=== PATIENT | male | born 1965 | race Caucasian/White ===

== ENCOUNTER 2018-02-07 18:50 | Emergency (ER) | payer BC ==
[~2018-02-07] VITALS: Ht 167.6 cm; Wt 93.0 kg
[2018-02-07] MEDS ORDERED: DICLOFENAC SODI75 MG PO (19:00)
[2018-02-07] MEDS ORDERED: FOLGARD TABLET1 EAC1 PO (19:01)
[2018-02-07] MEDS ORDERED: IBUPROFEN600 MG PO (20:08)
== END 2018-02-07 21:05 | disposition home or self-care (01) ==
LOC: ED 18:50
DX: S93.602A Unspecified sprain of left foot, initial encounter (principal); I10 Essential (primary) hypertension; E11.9 Type 2 diabetes mellitus without complications; Z79.899 Other long term (current) drug therapy; X50.9XXA Other and unspecified overexertion or strenuous movements or postures, initial encounter; Y93.01 Activity, walking, marching and hiking
CPT/HCPCS: 73630; 99283

== ENCOUNTER 2018-04-17 05:55 | Inpatient (IN) | payer OTHER, BC ==
--- NOTE | 2018-04-10 17:07 | NUR ---
PATIENT HERE TODAY FOR PREADMISSION APPOINTMENT. HE IS SCHEDULED FOR A LEFT TOTAL KNEE REPLACMENT ON 04/17/18. HE HAS ATTENDED A [facility]INT [facility] ALREADY WITH PHYSICAL THERAPY AND APPOINTMENTS HAVE BEEN SET UP FOR POST OP. HE HAS ONE STEP INTO HIS HOME AND NO STEPS ONCE INSIDE THE HOME. HE HAS A WALK IN SHOWER WITH BUILT IN [place]. HE HAS ACCESS TO A WALKER. HIS OZIEL WILL BE HERE TO TRANSPORT HIM HOME AND TO APPOINTMENTS. THIS INFORMATION WILL BE SENT TO DR GILES OFFICE AND PR PLANNING FOR FURTHER FOLLOW UP.
[~2018-04-17] VITALS: Ht 167.6 cm; Wt 91.2 kg
[~2018-04-17 05:55] MED LIST: DICLOFENAC SODI75 MG PO; FOLGARD TABLET1 EAC1 PO; IBUPROFEN600 MG PO
--- NOTE | 2018-04-17 08:55 | NUR ---
04/17/18 0855 Thelma Parker 0836 PT ARRIVES TO PACU, SLEEPING. [address] AT 6L. PT SNORING. DENIES PAIN AND NAUSEA. PT STATES TO HAVE NUMBNESS IN THE LOWER EXTREMITIES DUE TO SPINAL AND BLOCK. PT RESTING. 0851 CBG 198. O2 DECREASED TO 4L VIA M. PT AWAKENS TO STIMULI. DENIES PAIN AND NAUSEA.
--- NOTE | 2018-04-17 13:15 | NUR ---
52 YEAR OLD MALE PATIENT ADMITTED TO CCU FROM PACU W/ DX OF S/P LTK AND LOW O2 SATURATIONS. UPON ADMIT PATIENT IS AWAKE AND ALERT, IS ABLE TO FOLLOW COMMANDS, TALKING COMPLETE IN COMPLETE SENTANCES. CRYOCUFF IN PLACE TO LEFT KNEE. WING HOSE/SCD'S, HEEL PROTECTORS IN PLACE. DENIES PAIN. DENIES SHORTNESS OF BREATH, DENIES CHEST PAIN. STATES NEED TO VOID. PREVENA SYSTEM IN PLACE TO LEFT KNEE
[2018-04-17] MEDS ORDERED: VITAMIN D50000 UNI1 PO (13:29)
--- NOTE | 2018-04-17 13:30 | NUR ---
ATTEMPTING TO VOID, VOIDED SMALL AMOUNT. DR. THOMASON AWARE AND PADILLA CATH ORDERED.
--- NOTE | 2018-04-17 13:38 | NUR ---
PT LAYING WITH O2 MASK ON, WAITING FOR SURGERY STAFF. VISITED WITH HIM AND HIS , GAVE A QUICK BLESSING AND STAFF IN TO TAKE PT TO SURGERY. WILL FOLLOW NEEDED
--- NOTE | 2018-04-17 14:10 | NUR ---
FOLLOWING SURGERY, PT TAKEN TO CCU INSTEAD OF M\S. PT AWAKE, ON O2 MASK. HIS IS IN RM, HAVING TROUBLE WITH BED. RN LORRAINE DICKINSON WAS ABLE TO COME AND FIX THE BED, EXTENDED A BLESSING, WILL FOLLOW NEEDED
--- NOTE | 2018-04-17 14:15 | NUR ---
PADILLA CATH PLACED WITH RETURNN OF 1400 ML ORANGE LIKE URINE.
--- NOTE | 2018-04-17 15:30 | NUR ---
phys therapy here to WORK WITH PATIENT. REMAINS ON OXYMASK AT 4 L. DENEIS PAIN
--- NOTE | 2018-04-17 16:00 | NUR ---
ASSESSMENT DONE, IS W/O C/O. IS IN ROOM.
--- NOTE | 2018-04-17 18:00 | NUR ---
TOOK DINNER WELL. DENIES PROBLEMS. [facility] PATENT. CRYOCUFF IN PLACE.
--- NOTE | 2018-04-17 19:27 | NUR ---
HOB ELEVATED. WATCHING TV, NO CHANGES, O2 IS L NC, SAT-95.
--- NOTE | 2018-04-17 19:30 | NUR ---
PT IS TALKING ON PHONE, AT BEDSIDE, DENIES NEEDS OR PAIN AT THIS TIME.
--- NOTE | 2018-04-17 20:30 | NUR ---
PT IS AWAKE IN BED, ON LAPTOP. DENIES PAIN. PADILLA IN PLACE DRAINING GOOD AMOUNT OF ORANGE URINE. PT IS ON 2L/O2 NASAL CANNULA WITH SPO2 95%, NO APNEIC PERIODS NOTED SINCE SHIFT STARTING.
--- NOTE | 2018-04-17 21:52 | NUR ---
SANDWICH BOX PROVIDED FOR HS SNACK.
--- NOTE | 2018-04-18 00:30 | NUR ---
ASSESSMENT DONE, PT READY TO SLEEP FOR THE NIGHT, CONT TO DENY PAIN OR NEEDS.
--- NOTE | 2018-04-18 02:00 | NUR ---
PT CONT TO SLEEP, NO PERIODS OF APNEA NOTED, RR 12 AND SPO2 97% ON 2L/NC. HR 57-65 SINUS. URINE OUTPUT REMAINS QUANTITY SUFFICIENT.
--- NOTE | 2018-04-18 05:00 | NUR ---
ASSESSMENT DONE, PT DENIES NEEDS/PAIN, HAS BEEN RESTFUL. NO PERIODS OF DESATURATIONS.
--- NOTE | 2018-04-18 07:00 | NUR ---
AWAKENS FOR TYLENOL, STATES HE FEELS LIKE HE IS STARTING TO REGAIN SENSATION IN LEG BUT NOT CONSIDERING IT PAINFUL YET.
--- NOTE | 2018-04-18 08:24 | NUR ---
MORNING ASSESSMENT AND MEDICATIONS DUE. THIS RN TO BEDSIDE. PT AWAKE AND ORIENTED BUT DROWSY. PT REPORTS 2/10 PAIN. THIS RN NOTES THAT THERE IS NO PIPE LINE GAUGER ORDER FOR WHEN ORAL PAIN MEDICAITONS CAN BE STARTED. SURGERY CONTACTED. PIPE LINE GAUGER JOHAN BORJA GIVES STATES THAT ORAL PAIN MEDICATIONS CAN BE STARTED 12 HOURS POST SPINAL. 12 HOURS HAS ELAPSED SINCE PTS SPINAL, SPINAL RESOLVED, PAIN MEDICAITON GIVEN (SEE MAR). RANDY HELLER'D PER ORDER. PT EDUCATION R/T POST OP VOIDING DONE, PT VERBALIZES UNDERSTANDING THAT HE WILL ATTEMPT TO VOID BY 1200. ROOM AIR TRIAL ATTEMPTED. PT DROPS TO 88% WHEN SLEEPING. O2 BY NC AT 1 LITER RESTARTED. PT MAINTAINING O2 SATURATIONS ABOVE 92% CRYO CUFF ICE REFILLED. ASSESSMENT DONE. PT DENIES N/V. DRESSING CDI. NO DRAINAGE NOTED IN PREVENA DRESSING CANISTER. CMS INTACT. MEDIATIONS GIVEN. CRYO CUFF, SCD'S, WING HOSE, AND HEEL PROTECTORS IN PLACE. BED RAILS UP. CALL LIGTH WITHIN REACH.
--- NOTE | 2018-04-18 09:02 | OR ---
[facility] [address] [place], [place] [address] Signed DATE OF OPERATION: 04/17/2018 SURGEON: Elsa Sifuentes MD PREOPERATIVE DIAGNOSIS: Severe degenerative left knee. POSTOPERATIVE DIAGNOSIS: Severe degenerative left knee. PROCEDURE PERFORMED: Left total knee arthroplasty with computer navigation. ASSISTANTS: 1. Mechelle Manuel PA-C. Mechelle was present in critical positioning, retraction, and wound closure. 2. CHRISTIAN Marcelo. ANESTHESIA: Spinal. BLOOD LOSS: Minimal. TOURNIQUET TIME: 60 minutes. IMPLANTS: Darrick Triathlon size 4, 11 mm insert, and 35 mm patella. BRIEF HISTORY: Richar is a 52-year-old gentleman with significant pain and disability from his knee. We tried injections bracing and arthroscopy without substantial relief. Risks, benefits, and alternatives of operative treatment were discussed with him and he elected to proceed. DESCRIPTION OF PROCEDURE: Once consent was obtained, he was taken to the operating room. After adequate anesthesia, he was placed on operating table. All downside pressure points well padded. The left leg was placed on a hip bump, and was placed in a well-padded proximal thigh Electronically Signed By: ELSA SIFUENTES MD 04/18/18 0902 PATIENT NAME: RICHAR LUA OPERATIVE REPORT DATE OF : 63 REPORT #: [id number] PHYSICIAN: ELSA SIFUENTES MD PCP: BOAZ GREENE MD REPORT IS CONFIDENTIAL AND NOT TO BE RELEASED WITHOUT AUTHORIZATION [facility] [address], [place] [address] Signed tourniquet. The leg was prepped and draped in a standard sterile fashion and exsanguinated using Esmarch bandage. Tourniquet inflated to 250 mmHg. Standard anterior approach was made through skin and subcutaneous tissue. Median parapatellar arthrotomy was performed. The infrapatellar fat pad was excised. The MCL was elevated of a sleeve around the posterior medial corner. The anterior horns of menisci were transected as was the ACL. The PCL was found to be intact. Navigation guide was pinned to the distal femur. The femur was registered with the computer. The cutting block was then pinned in neutral alignment and the distal femoral cut was made. The bone was excised as were any osteophytes. The AP cutting block was then pinned in alignment with epicondylar axis and the anterior, posterior, and chamfer cuts were made. The bone fragments were again removed. The attention was then turned to the proximal tibia. The navigation guide was pinned and the tibia was registered with the computer. The cutting block was then pinned in neutral alignment and set to take 2 mm off the most involved posteromedial corner. The cut was made with care taken to protect the patellar tendon and MCL. The bone was removed as were any meniscal remnants. Posterior release performed off the femur and posterior osteophytes removed. Flexion-extension gaps were sized and be symmetric at 11 mm. The trials were then positioned, the knee was taken through range of motion and found to be quite stable. The patella was cut sized and drilled for 35 patella. The distal femoral drill holes were made and the trials were removed. The proximal tibia was finished using the keel punch. The bone surfaces were pulse lavaged and packed with a dry Ray-Rainer. The cement was mixed and reached to proper consistency, was placed all implants and on all bone surfaces. Tibia was impacted in position first followed by the femur and all excess was removed. The polyethylene was snapped into position and the knee was extended and nicely loaded. The patella was clamped into position, again any excess was removed. The cement was allowed to harden. Once it hardened sufficiently, the knee was flexed and the remaining overflow was removed using osteotomes. The knee was pulse lavaged at intervals throughout the procedure. A total of 3 L antibiotic irrigation was used. The periarticular soft tissues were injected with 100 mL ropivacaine and Toradol mixture. The arthrotomy was then closed using #1 0 Stratafix for subcutaneous tissue, and jasmyne for the skin. The knee was dressed with dressing and Shukri wrap. He tolerated the procedure well. All sponge, needle, and instrument counts were correct. Elsa Sifuentes MD BA/MODL /[id number] Electronically Signed By: ELSA SIFUENTES MD 04/18/18901 PATIENT NAME: RICHAR LUA OPERATIVE REPORT DATE OF : 63 REPORT #: [id number] PHYSICIAN: ELSA SIFUENTES MD PCP: BOAZ GREEEN MD REPORT IS CONFIDENTIAL AND NOT TO BE RELEASED WITHOUT AUTHORIZATION [address] [address] Signed Copies: ~ Electronically Signed By: ELSA SIFUENTES MD 04/18/18 0902 PATIENT NAME: RICHAR LUA OPERATIVE REPORT DATE OF : 63 REPORT #: [id number] PHYSICIAN: ELSA SIFUENTES MD PCP: BOAZ GREENE MD REPORT IS CONFIDENTIAL AND NOT TO BE RELEASED WITHOUT AUTHORIZATION
--- NOTE | 2018-04-18 09:47 | NUR ---
THIS RN TO ROOM TO UPDATE PT ON PLAN OF CARE AND TRANSFER TO MED/SURG. TELE DC'D. PT FINISHED WITH BREAKFAST, TOLERATED. WELL. PT/FAMILY EDUCATION DONE REGARDING CRYO CUFF USE AT HOME. PT AND FAMILY VERBALIZE UNDERSTANDING. REPORT CALLED TO MED/SURG, GIVEN TO CURLY DUGGAN, WHO STATES HER QUESTIONS HAVE BEEN ANSWERED. PT TRANSFERED TO MED/SURG. ALL BEONGINGS WITH PT.
--- NOTE | 2018-04-18 10:17 | NUR ---
PATIENT TRANSFERRED FROM CCU. REPORT FROM CURLY GUSMAN. VSS. PATIENT SETTLED IN ROOM. QUEENIE SWEET, WORKING WITH PATIENT ON IN BED EXERCISES. CALL LIGHT WITHIN REACH. NO FURTHER REQUESTS AT THIS TIME.
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
--- NOTE | 2018-04-18 12:45 | NUR ---
ROUNDED ON PATIENT. STILL DUE TO VOID. PATIENT EATING LUNCH WITH AT BEDSIDE. PATIENT WILL TRY TO VOID IN 15 MINUTES. CALL LIGHT WITHIN REACH. NO FURTHER REQUESTS AT THIS TIME.
--- NOTE | 2018-04-18 13:00 | NUR ---
PATIENT HAS NOT VOID YET. BLADDER SCANNED 486 ML FOUND. FEELS THE URGE BUT UNABLE TO VOID. TRIED STANDING UP. PATIENT REQUESTED MORE TIME TO TRY TO VOID. CALL LIGHT WITHIN REACH. NO FURTHER REQUESTS AT THIS TIME.
--- NOTE | 2018-04-18 14:29 | NUR ---
PATIENT UP TO VOID. ABLE TO VOID A LITTLE (UNMEASURED). BLADDER SCAN OF 786 ML. MD CALLED, ORDERS FOR PADILLA TO BE PLACED. MEDICATIONS GIVEN (SEE MAR). WING HOSE ON, CRYCUFF ON. DRESSING CDI. FOOT PUMPS ON, HEEL PROTECTORS ON. CALL LIGHT WITHIN REACH. CURLY HARDY, IN TO PLACE PADILLA.
--- NOTE | 2018-04-18 14:57 | NUR ---
OLGA LIDIA RN BLADDER SCANNED PATIENT X2. LAST BLADDER SCAN >700. DR GILES CALLED. NEW ORDER TO REINSERT PADILLA AND INCREASE FLOMAX. THIS RN INSERTED PADILLA CATHETER. PATIENT TOLERATED WELL. 850ML ORANGE URINE OUT AFTER INSERTION.
--- NOTE | 2018-04-18 16:15 | NUR ---
ASSESSMENT DUE. PATIENT REPORTS 2/10 PAIN, REFUSED MEDICATION. SITTING IN BED WORKING ON PHONE, AT BEDSIDE. WOUND VAC HAS A SEAL AND IS WORKING. CRIS WRAP IS CDI, CRYOCUFF ON. WING HOSE ON, FOOT PUMPS ON, HEEL PROTECTORS ON. CALL LIGHT WITHIN REACH. NO FURTHER REQUESTS AT THIS TIME.
--- NOTE | 2018-04-18 17:51 | NUR ---
PATIENT EATING DINNER WITH AT BEDSIDE. CALL LIGHT IN REACH. NO FURTHER NEEDS AT THIS TIME.
--- NOTE | 2018-04-18 18:40 | NUR ---
PATIENT REPORTED 4/10 PAIN. EDUCATED PATIENT ON PAIN SCALE AND PAIN MANAGEMENT. PRN PAIN MED GIVEN (SEE MAR). AT BEDSIDE. CALL LIGHT WITHIN REACH. NO FURTHER REQUESTS AT THIS TIME.
--- NOTE | 2018-04-18 18:43 | NUR ---
PATIENT HERE FOLLOWING LEFT TOTAL KNEE REPLACEMENT. PRN PAIN MEDICATIONS GIVEN X2. PADILLA IN PLACE AFTER FAILED VOIDING TRIAL. PADILLA DRAINING WELL. PREVENA WOUND VAC, CRIS WRAP CDI. CRYOCUFF, TEDS, SCDS, AND HEEL BOOTS IN PLACE. PIV SL. AMBULATED WITH PHYSICAL THERAPY. USES CALL LIGHT APPROPRIATELY.
[2018-04-18] MEDS ORDERED: [UNRECOGNIZED DRUG - OTHER] PO (18:51)
[2018-04-18] MEDS ORDERED: LIFE PO (18:52)
[2018-04-18] MEDS ORDERED: BALANCE PO (18:53)
--- NOTE | 2018-04-18 19:05 | NUR ---
REPORT RECEIVED FROM SCARLET RN. PT WAS RESTING SUPINE IN BED WATCHING TV, CALL LIGHT AND H20 IN REACH. NO NEEDS VOICED. CMS INTACT TO AFFECTED LEFT LE. DSG CDI TO LEFT KNEE. POLAR ICE TO LEFT KNEE. SCDS IN PLACE.
--- NOTE | 2018-04-18 19:57 | NUR ---
IN ROOM TO TAKE VS AND I&0. FRESH ICE PLACED IN CRYO. PT DENIES FURTHER NEEDS.
--- NOTE | 2018-04-18 21:00 | NUR ---
PT RESTING SUPINE IN BED WATCHING TV. PT DENIES PAIN AT THIS TIME. ASSESSMENT COMPLETED. CALL LIGHT AND H2O IN REACH. CMS TO LEFT FOOT INTACT. WING NANCE SCD'S ADN POLAR ICE INTACT. NO REQUESTS VOICED.
--- NOTE | 2018-04-18 23:37 | NUR ---
PT RESTING SUPINE IN BED, EYES CLSOED AND RESPIRATIONS EVEN AND UNLABORED. PT APPEARS TO BE SLEEPING COMFORTABLY WITH CALL LIGHT AND H20 IN REACH.
--- NOTE | 2018-04-19 01:53 | NUR ---
PT RESTING SUPINE IN BED, PT ALERT TO VOICE, PT STATES PAIN IS 2/10 AND TOLERABLE. IV TORADOL ADMINISTERED. ASSESSMENT COMPLETED. POLAR ICE MACHINE REFILLED . H20 AND CALL LIGHT IN REACH. NO FURHTER CONCERNS OR REQUESTS VOICED.
--- NOTE | 2018-04-19 04:37 | NUR ---
PT RESTING SUPINE IN BED, RESPIRATIONS EVEN AND UNLABORED. CALL LIGHT AND H20 IN REACH. PT APPEARS TO BE SLEEPING COMFORTABLY.
--- NOTE | 2018-04-19 05:41 | NUR ---
PT APPEARED TO HAVE SLEPT COMFORTABLY THROUGH THE NIGHT. PAIN HAS BEEN WELL MANAGED WITH SCHEDULED TYLENOL AND TORADOL THROUGH THE NIGHT. PT TOLORATED WING HOSE, SCD'S, CRYO CUFF WELL AND DSG REMAINS CDI WITH PREVENA WOUND VAC IN PLACE. PADILLA CATH REMAINS IN PLACE DUE TO URINARY RETENTION ON PRIOR SHIFT. PT HAD A GOOD AMOUNT OF CLEAR YELLOW URINE OUTPUT THROUGH THE NIGHT. PT WORE PULSE OX THROUGH THE NIGHT, O2 APPEARED TO REMAIN ABOVE 90% ON ROOM AIR. CMS REMAINS INTACT TO LEFT FOOT.
--- NOTE | 2018-04-19 07:10 | NUR ---
MITCHELL LEFT ON DR TISHA GILES CELL PHONE REGARDING NEED FOR PADILLA PLACEMENT.
--- NOTE | 2018-04-19 08:10 | NUR ---
PATIENT IN BED WATCHING TV, FAMILY BEDSIDE. AM CARE DONE BY PATIENT. FRESH WATER GIVEN. CRYO FILLED. CALL LIGHT IN REACH. NO FURTHER NEEDS AT THIS TIME.
[2018-04-19] MEDS ORDERED: OXYCODONE HCL5 MG PO (08:54)
[2018-04-19] MEDS ORDERED: MAPAP500 M1 PO (08:55)
[2018-04-19] MEDS ORDERED: SENNA LAX8.6 MG PO (08:55)
[2018-04-19] MEDS ORDERED: GABAPENTIN600 MG PO (08:55)
--- NOTE | 2018-04-19 09:29 | NUR ---
PATIENT RESTING IN BED, FAMILY BEDSIDE. FRESH WATER GIVEN. CALL LIGHT IN REACH. NO FURTHER NEEDS AT THIS TIME.
--- NOTE | 2018-04-19 09:51 | NUR ---
PT RESTING IN BED ALERT TO NAME REPORTS PAIN 10/25, PT ADMINSITERED 5MG OXYCODONE AT THIS TIME TO HAVE APPROPRIATE COVERAGE FOR PHYSICAL THERAPY.
--- NOTE | 2018-04-19 11:58 | NUR ---
PT UP TO VOID WITH STANDBY ASSIST FWW, VOIDED 375ML.
--- NOTE | 2018-04-19 13:49 | NUR ---
PT UP AMBUALTING IN HALLS WITH PHYSICAL THERAPY AT THIS TIME. WILL MONITOR PAIN MANAGEMENT POST THERAPY. PT HAS BEEN ABLE TO VOID, WILL NOTIFY MD AND UPDATE FOR POSSIBLE DISCHARGE.
--- NOTE | 2018-04-19 14:11 | NUR ---
PT IN WITH Jaclyn-VISITED WITH HIS . SHE IS PLEASED WITH HIS CARE AND ADDED THAT HE HAS FINALLY VOIDED. SHOULD BE DC'D THIS AFTERNOON. EXTENDED A BLESSING ,WILL FOLLOW NEEDED
--- NOTE | 2018-04-19 14:21 | NUR ---
CALLED TO GIVE UPDATE, FOR POSSIBLE DISCHARE. SAID OK TO DISCHARGE AT THIS TIME
--- NOTE | 2018-04-19 14:40 | NUR ---
CALLED TO ASK IF HE WANTED TO CONTINUE XARALTO OUT PT. SAID NO.
--- NOTE | 2018-04-19 15:00 | NUR ---
PT EDUCATION GIVEN ON MEDICATIONS NEXT DOSE LAST DOSE TO RETURN TO OFFICE FOR DRESSING CHANGE TUESDAY NO APPOINTMENT NEEDED PER . ALSO ACTIVITY AND RESTRICTIONS. SAFE PAIN MEDICATIONS ADMINISTRATION AT HOME. CRYO CUFF SENT HOME WITH EDUCATION ON HOME USE. BERNADETTE FROM PHARM IN TO ALSO GIVE EDUCATIONS ON MEDICATION. EDUCATIONS GIVEN ON SIGNS AND SYMPTOMS TO SEEK MEDICAL ATTENTION AND/OR CALL OFFICE TO SEEK MD ADVICE. NO QUESTIONS OR CONCERNS.
== END 2018-04-19 15:22 | disposition home or self-care (01) | DRG 470 ==
LOC: MS 05:55 → DSVR 05:55 → DS 05:55 → MS 06:12 → DSVR 06:12 → MS 06:45 → CCU 08:35 → EDSTATUS 10:45 → MS 10:45 → DSVR 13:10 → CCU 13:10 → MS 13:44 → CCU 13:45 → MS 04-18 09:55
PROVIDERS: ADMIT Specialist
PROC: 8E0YXBZ Computer Assisted Procedure of Lower Extremity (ICD-10-PCS; 2018-04-17)
PROC: 3E0T3BZ Introduction of Anesthetic Agent into Peripheral Nerves and Plexi, Percutaneous Approach (ICD-10-PCS; 2018-04-17)
PROC: 0SRD0J9 Replacement of Left Knee Joint with Synthetic Substitute, Cemented, Open Approach (ICD-10-PCS; principal; 2018-04-17 06:45)
DX: M17.12 Unilateral primary osteoarthritis, left knee (principal); R06.81 Apnea, not elsewhere classified; E11.9 Type 2 diabetes mellitus without complications; I10 Essential (primary) hypertension; E78.00 Pure hypercholesterolemia, unspecified; E66.9 Obesity, unspecified; G89.29 Other chronic pain; R00.1 Bradycardia, unspecified; I95.9 Hypotension, unspecified; G89.18 Other acute postprocedural pain; R39.198 Other difficulties with micturition; T88.59XA Other complications of anesthesia, initial encounter; T41.3X5A Adverse effect of local anesthetics, initial encounter; Y92.239 Unspecified place in hospital as the place of occurrence of the external cause; Z68.32 Body mass index [BMI] 32.0-32.9, adult; Z79.1 Long term (current) use of non-steroidal anti-inflammatories (NSAID)
CPT/HCPCS: 01402; 36415; 36600; 51702; 51798; 64447; 76942; 80048; 82803; 85025; 94660; 94760; 94762; 97110; 97116; 97161; 97165; G8978; G8979; G8987; G8989; J0690; J0735; J1100; J1885; J2250; J2274; J2310; J2405; J2704; J2765; J3010; J7120

== ENCOUNTER 2019-04-10 14:26 | Emergency (ER) | payer OTHER, BC ==
[~2019-04-10] VITALS: Ht 167.6 cm; Wt 91.2 kg
[~2019-04-10 14:26] MED LIST changes: +BALANCE PO; +GABAPENTIN600 MG PO; +LIFE PO; +MAPAP500 M1 PO; +OXYCODONE HCL5 MG PO; +SENNA LAX8.6 MG PO; +VITAMIN D50000 UNI1 PO; +[UNRECOGNIZED DRUG - OTHER] PO
[2019-04-10] MEDS ORDERED: KEFLEX500 MG PO (15:05)
== END 2019-04-10 15:25 | disposition home or self-care (01) ==
LOC: ED 14:26
DX: L03.114 Cellulitis of left upper limb (principal); I10 Essential (primary) hypertension; E11.9 Type 2 diabetes mellitus without complications; Z79.899 Other long term (current) drug therapy
CPT/HCPCS: 99282